=== PATIENT | female | born 1960 | race Caucasian/White ===

== ENCOUNTER 2016-06-07 18:52 | Emergency (ER) | payer MEDICAID, OTHER ==
[~2016-06-07] VITALS: Ht 160 cm; Wt 82.0 kg
[~2016-06-07 18:52] MED LIST: ASPI-1035 PO; BENA40TA3 PO; INSULIN
[2016-06-07 23:14] VITALS: BP 140/77
== END 2016-06-07 23:34 | disposition home or self-care (01) ==
LOC: ER 20:12
DX: B86 Scabies (principal); L23.9 Allergic contact dermatitis, unspecified cause; I10 Essential (primary) hypertension; E11.9 Type 2 diabetes mellitus without complications; Z79.82 Long term (current) use of aspirin; Z79.4 Long term (current) use of insulin; Z88.0 Allergy status to penicillin; Z98.890 Other specified postprocedural states
CPT/HCPCS: 99283

== ENCOUNTER 2024-03-10 15:21 | Emergency (ER) | payer OTHER ==
[~2024-03-10] VITALS: Ht 165.1 cm; Wt 83.9 kg
[~2024-03-10 15:21] MED LIST changes: -ASPI-1035 PO; +ASPI-1497 PO; -BENA40TA3 PO; +BENA40TA91 PO
[2024-03-10 15:40] VITALS: O2SAT 99
[2024-03-10] MEDS: KETOROLAC 15MG/ML VIAL IV ONE (17:30)
[2024-03-10] MEDS: KETOROLAC 30MG/ML VIAL IM ONE (18:30)
[2024-03-10 18:31] VITALS: BP 149/52; PULSE 72; RESP 16; TEMP 37.00296; O2SAT 99
== END 2024-03-10 18:30 | disposition home or self-care (01) ==
LOC: ER 15:21
DX: M25.562 Pain in left knee (principal); E78.00 Pure hypercholesterolemia, unspecified; E11.9 Type 2 diabetes mellitus without complications; E03.9 Hypothyroidism, unspecified; Z88.0 Allergy status to penicillin; Z98.890 Other specified postprocedural states
CPT/HCPCS: 99283; 96372; J1885

== ENCOUNTER 2024-09-11 14:27 | Emergency (ER) | payer OTHER ==
[~2024-09-11] VITALS: Ht 152.4 cm; Wt 74.8 kg
[2024-09-11 14:34] VITALS: O2SAT 100
[2024-09-11] MEDS: ACETAMINOPHEN 500MG TABLET PO ONE (17:25)
[2024-09-11] MEDS ORDERED: IBUP-2029 MT (17:36)
[2024-09-11 18:01] VITALS: BP 127/76; PULSE 84; RESP 12; TEMP 36.6; O2SAT 100
[2024-09-11] MEDS ORDERED: T3 PO (18:12)
== END 2024-09-11 18:15 | disposition home or self-care (01) ==
LOC: ER 14:27
DX: S42.251A Displaced fracture of greater tuberosity of right humerus, initial encounter for closed fracture (principal); I10 Essential (primary) hypertension; E11.9 Type 2 diabetes mellitus without complications; E78.00 Pure hypercholesterolemia, unspecified; Z88.0 Allergy status to penicillin; Z79.82 Long term (current) use of aspirin; Z86.39 Personal history of other endocrine, nutritional and metabolic disease; W01.0XXA Fall on same level from slipping, tripping and stumbling without subsequent striking against object, initial encounter; Y93.89 Activity, other specified; Y92.89 Other specified places as the place of occurrence of the external cause; Y99.8 Other external cause status
CPT/HCPCS: 73030; 99283; A4565